=== PATIENT | male | born 1995 | race Caucasian/White ===

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

== ENCOUNTER 2018-04-03 12:00 | Emergency (ER) | payer BC, MEDICAID ==
[~2018-04-03] VITALS: Ht 175.3 cm; Wt 57.3 kg
[2018-04-03 12:18] VITALS: Ht 175.3 cm; Wt 57.3 kg
[2018-04-03 14:45] VITALS: BP 114/72
== END 2018-04-03 14:40 | disposition home or self-care (01) ==
LOC: D.ER 12:00
DX: R55 Syncope and collapse (principal)